=== PATIENT | female | born 1985 | race Asian ===

== ENCOUNTER 2016-10-28 10:16 | Inpatient (IN) | payer MEDICAID ==
[~2016-10-28] VITALS: Ht 162.6 cm; Wt 107.7 kg
[2016-10-28] MEDS: D5%-LACTATED RINGERS 1,000 ML IV SCH ×2 (10:18→18:18)
[2016-10-28] MEDS ORDERED: OXYTOCIN 30U/ 0.9% NaCL 500ML 500 ML IV ONE (10:18)
[2016-10-28 10:29] VITALS: BP 114/74
[2016-10-28] MEDS ORDERED: CALCIUM CARBONATE 500 MG TAB.CHEW PO PRN ×2 (10:30→18:30)
[2016-10-28] MEDS ORDERED: ONDANSETRON 2MG/ML, 2ML IVPush PRN (10:30)
[2016-10-28] MEDS ORDERED: FENTANYL PF 100 MCG/2ML IVPush PRN (10:30)
[2016-10-28] MEDS ORDERED: LIDOCAINE 1%, 20ML ONE (10:35)
[2016-10-28] MEDS ORDERED: MISOPROSTOL 200 MCG TABLET ONE (10:35)
[2016-10-28] MEDS ORDERED: NEWBORN KIT ONE (10:35)
[2016-10-28] MEDS ORDERED: OXYTOCIN 30U/ 0.9% NaCL 500ML 500 ML ONE (10:35)
[2016-10-28] MEDS ORDERED: PLEASE ENTER HEIGHT AND WEIGHT MC SCH (11:00)
[2016-10-28] MEDS ORDERED: FENTANYL PF 100 MCG/2ML ONE (13:08)
[2016-10-28] MEDS ORDERED: BUPIVACAINE/PF 0.25% ONE (13:27)
[2016-10-28] MEDS ORDERED: FENTANYL/BUPIV./NS/PF 250 ML EPIDCONT ONE ×2 (13:27→13:37)
[2016-10-28] MEDS ORDERED: FENTANYL/BUPIV./NS/PF 250 ML EPIDCONT SCH (13:35)
[2016-10-28] MEDS ORDERED: LACTATED RINGERS 1,000 ML IV SCH (13:35)
[2016-10-28] MEDS ORDERED: EPHEDRINE 50 MG/ML, 1ML IVPush PRN (14:00)
[2016-10-28] MEDS ORDERED: NALOXONE 0.4 MG/ML, 1ML IVPush PRN (14:00)
[2016-10-28] MEDS ORDERED: LACTATED RINGERS 1,000 ML IVBOLUS PRN (14:00)
[2016-10-28] MEDS: LACTATED RINGERS 1,000 ML IV SCH ×2 (15:04→18:18)
[2016-10-28] MEDS: AMPICILLIN 2 GM in SODIUM CHLORIDE 0.9% 100 ML IV SCH (17:11)
[2016-10-28] MEDS ORDERED: PHARMACOKINETIC MONITORING MC PRN (17:30)
[2016-10-28] MEDS ORDERED: GENTAMICIN PER PHARMACY MC PRN (17:30)
[2016-10-28] MEDS: OXYTOCIN 30U/ 0.9% NaCL 500ML 500 ML IV SCH (17:45)
[2016-10-28] MEDS: GENTAMICIN 160 MG in SODIUM CHLORIDE 0.9% 50 ML IV SCH (17:58)
[2016-10-28] MEDS ORDERED: MISOPROSTOL 200 MCG TABLET PR ONE (18:30)
[2016-10-28] MEDS ORDERED: METOCLOPRAMIDE 5 MG/ML, 2ML IV PRN (18:30)
[2016-10-28] MEDS ORDERED: CARBOPROST TROMETHAMINE 250 MCG/ML, 1ML IM PRN (18:30)
[2016-10-28] MEDS ORDERED: METHYLERGONOVINE 0.2 MG/ML IM PRN (18:30)
[2016-10-28] MEDS ORDERED: MEASLES,MUMPS&RUBELLA VACC/PF 0.5 ML SQ PRN (18:30)
[2016-10-28] MEDS ORDERED: ACETAMINOPHEN 325 MG TABLET PO PRN ×2 (18:30)
[2016-10-28] MEDS ORDERED: HYDROcodone/APAP 10/325 MG TABLET PO PRN (18:30)
[2016-10-28] MEDS ORDERED: MAGNESIUM HYDROXIDE 8%, 30ML UDC PO PRN (18:30)
[2016-10-28] MEDS ORDERED: RHOGAM FROM BLOOD BANK 1 NOTE EA IM/IV ONE (18:30)
[2016-10-28] MEDS ORDERED: GLYCERIN ADULT SUPP PR PRN (18:30)
[2016-10-28] MEDS ORDERED: HYDROcodone/APAP 5/325 TABLET PO PRN (18:30)
[2016-10-28] MEDS ORDERED: BISACODYL 10 MG SUPP PR PRN (18:30)
[2016-10-28] MEDS ORDERED: ONDANSETRON 2MG/ML, 2ML IV PRN (18:30)
[2016-10-28] MEDS ORDERED: DIPH,PERTUSS(ACELL),TET VAC/PF NC IM-VACC PRN (18:30)
[2016-10-28] MEDS ORDERED: MISOPROSTOL 200 MCG TABLET PR PRN (18:30)
[2016-10-28 21:20] VITALS: BP 112/64
[2016-10-29 00:10] VITALS: BP 109/68
[2016-10-29] MEDS: AMPICILLIN 2 GM in SODIUM CHLORIDE 0.9% 100 ML IV SCH ×4 (00:11→17:16)
[2016-10-29] MEDS: GENTAMICIN 160 MG in SODIUM CHLORIDE 0.9% 50 ML IV SCH ×3 (01:05→19:08)
[2016-10-29] MEDS: OXYTOCIN 30U/ 0.9% NaCL 500ML 500 ML IV SCH ×2 (04:20→12:49)
[2016-10-29 09:19] VITALS: BP 106/65
[2016-10-29] MEDS: PRENATAL VIT/IRON/FA 1 EACH TABLET PO SCH (09:38)
[2016-10-29] MEDS: DOCUSATE 100 MG CAPSULE PO PRN ×2 (09:39→19:34)
[2016-10-29 11:40] VITALS: BP 103/64
[2016-10-29 17:15] VITALS: BP_SYST 102; BP_SYST 127; BP_DIAS 61
[2016-10-29] MEDS: IBUPROFEN 600 MG TABLET PO PRN (21:17)
[2016-10-30] VITALS: BP 135/73
[2016-10-30] MEDS: OXYTOCIN 30U/ 0.9% NaCL 500ML 500 ML IV SCH ×2 (00:20→09:16)
[2016-10-30] MEDS: GENTAMICIN 160 MG in SODIUM CHLORIDE 0.9% 50 ML IV SCH (02:00)
[2016-10-30 03:09] VITALS: BP 103/55
[2016-10-30] MEDS: IBUPROFEN 600 MG TABLET PO PRN (04:25)
[2016-10-30 07:20] VITALS: BP 106/73
[2016-10-30] MEDS: PRENATAL VIT/IRON/FA 1 EACH TABLET PO SCH (07:49)
[2016-10-30] MEDS: DOCUSATE 100 MG CAPSULE PO PRN (09:13)
[2016-10-30] MEDS ORDERED: IBUP-1222 PO (10:33)
[2016-10-30] MEDS ORDERED: FERR-4 PO (10:34)
[2016-10-30 11:30] VITALS: BP 116/78
== END 2016-10-30 12:19 | disposition home or self-care (01) | DRG 774 ==
LOC: LDOP 10:16 → LDIP 10:32 → 2NW 20:28
PROVIDERS: ADMIT Obstetrics & Gynecology; ATTEND Obstetrics & Gynecology
PROC: 0KQM0ZZ Repair Perineum Muscle, Open Approach (ICD-10-PCS; principal; 2016-10-28)
PROC: 10E0XZZ Delivery of Products of Conception, External Approach (ICD-10-PCS; 2016-10-28)
PROC: 0T9B70Z Drainage of Bladder with Drainage Device, Via Natural or Artificial Opening (ICD-10-PCS; 2016-10-28)
PROC: 00HU33Z Insertion of Infusion Device into Spinal Canal, Percutaneous Approach (ICD-10-PCS; 2016-10-28)
PROC: 3E0R3CZ (ICD-10-PCS; 2016-10-28)
DX: O41.1230 Chorioamnionitis, third trimester, not applicable or unspecified (principal); O90.89 Other complications of the puerperium, not elsewhere classified; Z37.0 Single live birth; Z3A.40 40 weeks gestation of pregnancy; O77.0 Labor and delivery complicated by meconium in amniotic fluid; O48.0 Post-term pregnancy; Z88.6 Allergy status to analgesic agent; O70.1 Second degree perineal laceration during delivery; O90.81 Anemia of the puerperium; D64.9 Anemia, unspecified; R33.9 Retention of urine, unspecified
CPT/HCPCS: 36415; 81001; 82803; 85025; 86850; 86900; 90715; J0290; J3010; J1580; J2590; J7120

== ENCOUNTER 2017-08-14 10:55 | Emergency (ER) | payer MEDICAID ==
[~2017-08-14] VITALS: Ht 162.6 cm; Wt 98.0 kg
[~2017-08-14 10:55] MED LIST: FERR-4 PO; IBUP-1222 PO
[2017-08-14] MEDS ORDERED: METOCLOPRAMIDE 5 MG/ML, 2ML ONE (12:16)
[2017-08-14 12:24] LABS: BASOPHILS # (AUTO) 0.02 x10^3/uL (0-0.1); BASOPHILS % (AUTO) 1 % (0-1); EOSINOPHILS # (AUTO) 0.09 x10^3/uL (0-0.4); EOSINOPHILS % (AUTO) 2 % (1-7); LYMPHOCYTES # (AUTO) 1.38 x10^3/uL (1-3.4); LYMPHOCYTES % (AUTO) 32 % (22-44); MD NO; MEAN CORPUSCULAR HEMOGLOBIN 28.2 pg (27.0-34.8); MEAN CORPUSCULAR HGB CONC 33.3 g/dL (32.4-35.8); MEAN CORPUSCULAR VOLUME 84.7 fL (80-100); MEAN PLATELET VOLUME 7.8 fL (7.4-10.4); MONOCYTES # (AUTO) 0.48 x10^3/uL (0.2-0.8); MONOCYTES % (AUTO) 11 % (2-9); NEUTROPHILS # (AUTO) 2.34 x10^3/uL (1.8-6.8); NEUTROPHILS % (AUTO) 54 % (42-75); PLATELET COUNT 307 x10^3/uL (130-400); RED BLOOD COUNT 4.54 x10^6/uL (3.82-5.3); RED CELL DISTRIBUTION WIDTH 13.5 % (9.6-15.2)
[2017-08-14] MEDS ORDERED: METOCLOPRAMIDE 5 MG/ML, 2ML IVPush ONE (12:30)
[2017-08-14] MEDS ORDERED: SODIUM CHLORIDE FLUSH 10ML SYR IVF ONE (12:30)
[2017-08-14 12:31] LABS: ALANINE AMINOTRANSFERASE 110 U/L (12-78); ALBUMIN 3.1 g/dL (3.4-5.0); ANION GAP 9 mmol/L (5-15); CALCIUM 7.9 mg/dL (8.5-10.1); CHLORIDE 104 mmol/L (98-107); CREATININE 0.82 mg/dL (0.55-1.02)
[2017-08-14 12:36] LABS: ALKALINE PHOSPHATASE 60 U/L (45-117); BILIRUBIN,TOTAL 0.2 mg/dL (0.2-1.0); TOTAL PROTEIN 8.5 g/dL (6.4-8.2)
[2017-08-14 12:42] LABS: MICROSCOPIC INDICATED
[2017-08-14 12:43] LABS: CULTURE INDICATED? YES
[2017-08-14 14:26] VITALS: BP 113/70
== END 2017-08-14 14:27 | disposition home or self-care (01) ==
LOC: ED 14:12
DX: N30.01 Acute cystitis with hematuria (principal); G44.221 Chronic tension-type headache, intractable; R19.7 Diarrhea, unspecified; R94.5 Abnormal results of liver function studies
CPT/HCPCS: 36415; 70450; 76700; 80053; 80074; 81001; 83690; 84703; 85025; 87086; 96374; 99285; J2765

== ENCOUNTER 2018-09-21 05:50 | Inpatient (IN) | payer MEDICAID ==
[~2018-09-21] VITALS: Ht 162.6 cm; Wt 114.0 kg
[2018-09-21] MEDS ORDERED: D5%-LACTATED RINGERS 1,000 ML IV SCH (07:00)
[2018-09-21] MEDS ORDERED: OXYTOCIN 30U/ 0.9% NaCL 500ML 500 ML IV PRN (07:00)
[2018-09-21] MEDS ORDERED: TERBUTALINE 1 MG/ML, 1ML IVPush PRN (07:00)
[2018-09-21] MEDS ORDERED: FENTANYL PF 100 MCG/2ML IVPush PRN (07:00)
[2018-09-21] MEDS ORDERED: METOCLOPRAMIDE 5 MG/ML, 2ML IVPush PRN (07:00)
[2018-09-21] MEDS ORDERED: OXYTOCIN 30U/ 0.9% NaCL 500ML 500 ML IV ONE (07:00)
[2018-09-21] MEDS ORDERED: SODIUM CITRATE/CITRIC ACID 15 ML UDC PO PRN (07:00)
[2018-09-21] MEDS ORDERED: FENTANYL PF 100 MCG/2ML IV PRN (07:00)
[2018-09-21] MEDS ORDERED: NEWBORN KIT ONE (07:08)
[2018-09-21] MEDS ORDERED: LIDOCAINE 1%, 20ML ONE (07:08)
[2018-09-21] MEDS ORDERED: MISOPROSTOL 200 MCG TABLET ONE (07:08)
[2018-09-21] MEDS ORDERED: OXYTOCIN 30U/ 0.9% NaCL 500ML 500 ML ONE ×2 (07:09→15:42)
[2018-09-21] MEDS: LACTATED RINGERS 1,000 ML IV SCH ×8 (07:27→23:14)
[2018-09-21 08:10] LABS: BASOPHILS # (AUTO) 0.03 x10^3/uL (0-0.1); BASOPHILS % (AUTO) 0 % (0-1); EOSINOPHILS # (AUTO) 0.36 x10^3/uL (0-0.4); EOSINOPHILS % (AUTO) 4 % (1-7); LYMPHOCYTES # (AUTO) 1.44 x10^3/uL (1-3.4); LYMPHOCYTES % (AUTO) 15 % (22-44); MD NO; MEAN CORPUSCULAR HEMOGLOBIN 26.8 pg (27.0-34.8); MEAN CORPUSCULAR HGB CONC 32.8 g/dL (32.4-35.8); MEAN CORPUSCULAR VOLUME 81.6 fL (80-100); MEAN PLATELET VOLUME 7.7 fL (7.4-10.4); MONOCYTES % (AUTO) 6 % (2-9); NEUTROPHILS # (AUTO) 7.04 x10^3/uL (1.8-6.8); NEUTROPHILS % (AUTO) 74 % (42-75); PLATELET COUNT 318 x10^3/uL (130-400); RED BLOOD COUNT 3.91 x10^6/uL (3.82-5.3); RED CELL DISTRIBUTION WIDTH 15.2 % (9.6-15.2)
[2018-09-21] MEDS ORDERED: FENTANYL/BUPIV./NS/PF 250 ML EPIDCONT SCH ×2 (13:49→14:44)
[2018-09-21] MEDS ORDERED: FENTANYL PF 500 MCG, BUPIVACAINE/PF 0.5%, 30ML 62.5 ML in SODIUM CHLORIDE 0.9% 177.5 ML EPIDCONT SCH (14:00)
[2018-09-21] MEDS ORDERED: BUPIVACAINE 0.25% ONE (14:41)
[2018-09-21] MEDS ORDERED: LIDOCAINE/PF 1.5%-EPI 1:200K, 30ML ONE (14:41)
[2018-09-21] MEDS ORDERED: NALOXONE 0.4 MG/ML, 1ML IVPush PRN (15:00)
[2018-09-21] MEDS ORDERED: LACTATED RINGERS 1,000 ML IVBOLUS PRN (15:00)
[2018-09-21] MEDS ORDERED: ONDANSETRON 2MG/ML, 2ML IVPush PRN (15:00)
[2018-09-21] MEDS ORDERED: DIPHENHYDRAMINE 50 MG/ML, 1ML IVPush PRN (15:00)
[2018-09-21] MEDS ORDERED: EPHEDRINE 50 MG/ML, 1ML IVPush PRN (15:00)
[2018-09-21] MEDS ORDERED: ACETAMINOPHEN 325 MG TABLET PO PRN (15:30)
[2018-09-21] MEDS ORDERED: METHYLERGONOVINE 0.2 MG/ML IM PRN (15:30)
[2018-09-21] MEDS ORDERED: OXYcodone/APAP 5/325MG TABLET PO PRN ×2 (15:30)
[2018-09-21] MEDS ORDERED: MISOPROSTOL 200 MCG TABLET PR PRN (15:30)
[2018-09-21] MEDS ORDERED: DOCUSATE 100 MG CAPSULE PO PRN (15:30)
[2018-09-21] MEDS ORDERED: ONDANSETRON 2MG/ML, 2ML IV PRN (15:30)
[2018-09-21] MEDS: OXYTOCIN 30U/ 0.9% NaCL 500ML 500 ML IV SCH (15:47)
[2018-09-21] MEDS ORDERED: METHYLERGONOVINE 0.2 MG/ML IM ONE (16:24)
[2018-09-21] MEDS ORDERED: MISOPROSTOL 200 MCG TABLET PR ONE (16:30)
[2018-09-21] MEDS: IBUPROFEN 600 MG TABLET PO PRN (19:19)
[2018-09-21 21:00] VITALS: BP 113/72
[2018-09-21 23:00] LABS: BASOPHILS # (AUTO) 0.01 x10^3/uL (0-0.1); BASOPHILS % (AUTO) 0 % (0-1); EOSINOPHILS # (AUTO) 0.31 x10^3/uL (0-0.4); EOSINOPHILS % (AUTO) 2 % (1-7); LYMPHOCYTES # (AUTO) 1.69 x10^3/uL (1-3.4); LYMPHOCYTES % (AUTO) 13 % (22-44); MD NO; MEAN CORPUSCULAR HEMOGLOBIN 26.9 pg (27.0-34.8); MEAN CORPUSCULAR VOLUME 81.6 fL (80-100); MEAN PLATELET VOLUME 7.1 fL (7.4-10.4); MONOCYTES # (AUTO) 0.63 x10^3/uL (0.2-0.8); MONOCYTES % (AUTO) 5 % (2-9); NEUTROPHILS # (AUTO) 10.45 x10^3/uL (1.8-6.8); NEUTROPHILS % (AUTO) 80 % (42-75); PLATELET COUNT 303 x10^3/uL (130-400); RED BLOOD COUNT 3.65 x10^6/uL (3.82-5.3); RED CELL DISTRIBUTION WIDTH 14.9 % (9.6-15.2)
[2018-09-22 01:00] VITALS: BP 116/77
[2018-09-22] MEDS: LACTATED RINGERS 1,000 ML IV SCH ×4 (01:14→11:14)
[2018-09-22] MEDS: OXYTOCIN 30U/ 0.9% NaCL 500ML 500 ML IV SCH ×2 (01:14→11:14)
[2018-09-22 04:00] VITALS: BP 115/76
[2018-09-22] MEDS: IBUPROFEN 600 MG TABLET PO PRN (05:50)
[2018-09-22 08:00] VITALS: BP 118/79
[2018-09-22] MEDS ORDERED: PRENATAL VIT/IRON/FA 1 EACH TABLET PO SCH (09:00)
[2018-09-22 12:15] VITALS: BP 115/78
== END 2018-09-22 15:07 | disposition home or self-care (01) | DRG 807 ==
LOC: LDIP 05:50 → 2NW 17:14
PROVIDERS: ADMIT Obstetrics & Gynecology; ATTEND Obstetrics & Gynecology
PROC: 10E0XZZ Delivery of Products of Conception, External Approach (ICD-10-PCS; principal; 2018-09-21)
PROC: 10907ZC Drainage of Amniotic Fluid, Therapeutic from Products of Conception, Via Natural or Artificial Opening (ICD-10-PCS; 2018-09-21)
PROC: 3E033VJ Introduction of Other Hormone into Peripheral Vein, Percutaneous Approach (ICD-10-PCS; 2018-09-21)
DX: O80 Encounter for full-term uncomplicated delivery (principal); Z37.0 Single live birth; Z3A.40 40 weeks gestation of pregnancy
CPT/HCPCS: 36415; S0020; 85025; 86850; 86900; 86923; G0378; J3010; J2210; J2590; J7050; J7120